=== PATIENT | male | born 1980 ===

== ENCOUNTER 2023-09-16 13:09 | Emergency (ER) | payer MEDICAID, SELFPAY ==
--- NOTE | ~2023-09-16 | CT_ITS ---
EXAMINATION: CT ABDOMEN AND PELVIS WITH CONTRAST CLINICAL INFORMATION: Right lower quadrant pain COMPARISON: None available. TECHNIQUE: Multidetector volumetric images were obtained from the superior aspect of the liver through the pubic symphysis following administration 85 mL of Omnipaque 350 intravenous contrast. Sagittal and coronal reformatted images were obtained on the technologist's workstation. Oral contrast: No This CT examination was performed using dose optimization techniques as appropriate, variously including the following: *Automated exposure control *Adjustment of mA and/or kV according to patient size (this includes techniques or standardized protocols for targeted exams where dose is matched to indication/reason for exam; i.e. extremities or head) *Use of iterative reconstruction technique DLP: 639 mGy-cm FINDINGS: LUNG BASES: The visualized lung bases are unremarkable. LIVER, GALLBLADDER, AND BILIARY TREE: Diffuse low attenuation of liver parenchyma due to fatty change. No focal liver lesion. No intrahepatic bile duct dilatation. The right lower liver measures 20 cm, borderline enlarged. The gallbladder is unremarkable with no evidence of radiopaque gallstones, gallbladder wall thickening, or obvious pericholecystic inflammatory changes. PANCREAS: Unremarkable. SPLEEN: Unremarkable. ADRENAL GLANDS: Unremarkable. BLADDER/KIDNEYS AND URETERS: Right kidney: Mild hydronephrosis right kidney with distention renal pelvis and a mild right-sided hydroureter. There is a stone at the right ureterovesical junction which is passing or has passed into the bladder base. This stone measures about 3 mm. Image 697/[id number] series 4. No other stone in either kidney or collecting system. Left kidney is normal. GASTROINTESTINAL TRACT: The small and large bowel are unremarkable. The appendix is unremarkable. ABDOMINAL WALL: No significant hernia is appreciated. LYMPH NODES: Normal. VASCULAR: Unremarkable. PELVIC VISCERA: Unremarkable. OSSEOUS STRUCTURES: Unremarkable. CT/CT abdomen pelvis w IV con IMPRESSION: Mild hydronephrosis of right kidney due to a 3 mm stone at the right ureterovesical junction. Fleischner guidelines were followed.
[2023-09-16 13:14] VITALS: BP 166/90; PULSE 65; RESP 19; TEMP 35.8; O2SAT 98; BMI 33.6
--- NOTE | 2023-09-16 13:14 | ED_ITS ---
HPI - General Adult General Chief complaint: Abdominal Pain Stated complaint: r sided abd pain nausea Time Seen by Provider: 09/16/23 13:33 Source: patient and asp developer Mode of arrival: ambulatory History of Present Illness HPI narrative: 43-year-old male who presents with onset of right lower quadrant pain that started this morning with associated subjective fever, chills, nausea, vomiting and states that although the pain has somewhat improved it is still present. He denies having this pain ever before in his life, denies any underlying medical problems. Related Data Previous Rx's Medication Instructions Recorded ketorolac 10 mg tablet 10 mg PO Q6H PRN pain 5 days #20 09/16/23 tabs ondansetron 4 mg disintegrating 4 mg PO Q8H PRN nausea and 09/16/23 tablet vomiting 4 days #10 tabs prednisone 20 mg tablet 20 mg PO DAILY #4 tabs 09/16/23 tamsulosin 0.4 mg capsule (Flomax) 0.4 mg PO BEDTIME 5 days #5 caps 09/16/23 Allergies Allergy/AdvReac Type Severity Reaction Status Date / Time No Known Allergies Allergy Verified 09/16/23 13:18 Review of Systems 2 Review of Systems: Pertinent positives and negatives as stated in HPI [facility] Past Medical History Source: nursing notes reviewed Onset Date is defined in the Problem List Problems that require an onset date and time if occurred within 24 hrs of arrival to the ED Aortic Dissection and Rupture; Neurologic impairment; Cardiopulmonary Arrest; Endotracheal Intubation; Insertion or Replacement of Mechanical Circulatory Assist Device Social History Social History Advance Directives: No Advance Directives Information Provided: Yes Physical Exam ED Vital Signs: Vital Signs - 24 hr 09/16/23 13:14 09/16/23 14:28 09/16/23 15:55 Temperature 96.4 F L 98.0 F 97.8 F Pulse Rate 65 74 74 Respiratory Rate 19 16 16 Blood Pressure 166/90 H 144/84 H 145/87 H Pulse Oximetry 98 94 98 Oxygen Delivery Method Room Air Room Air Room Air BMI result Body Mass Index 33.6 VITAL SIGNS: Reviewed. GENERAL: Well developed, well nourished, in no acute distress. HEAD: Normocephalic/atraumatic EYES: PERRLA, EOMI EARS: Ext canals without abnormality NOSE: Nares patent bilateral OROPHARYNX: no oral lesions noted, posterior pharynx clear NECK: Supple, no adenopathy LUNGS: Normal breath sounds. No adventitious sounds or accessory muscle use. SpO2<98> CARDIOVASCULAR: Regular rate and rhythm without noted murmurs ABDOMEN: Soft, right lower quadrant pain on deep palpation without rebound, non- distended with bowel sounds. MUSCULOSKELETAL: No tenderness, deformities, or effusions noted on gross inspection. EXTREMITIES: No cyanosis, clubbing or edema. SKIN: Inspection of the skin reveals no rashes NEUROLOGIC: Alert and oriented x 4. Strength and sensation to light touch were grossly intact x 4. Course Course Course Narrative: This is a rapid medical exam: Additional HPI, ROS, PE not included below will be deferred to primary provider. 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 Took 800mg ibuprofen. Patient recently came here from [place] 2 weeks ago. Rates pain at 9/10. No abdominal tenderness appreciated in triage, no CVAT. Denies dysuria. Plan: labs, UA Medications Administered Discontinued Medications Generic Name Dose Route Start Last Admin Trade Name Freq PRN Reason Stop Dose Admin Iohexol 100 ml 09/16/23 15:15 09/16/23 15:17 Iohexol 350 Mg/Ml 100 Ml Infus..Btl IV 09/16/23 15:16 85 ml ONCE ONE Administration Medical Decision Making Medical Decision Making MDM Narrative: 43-year-old male with history and clinical presentation, DDX: Early appendicitis, renal colic, constipation, musculoskeletal. Reviewed all investigations and hematologic indices are negative for leukocytosis or left shift, there is no anemia or thrombocytopenia. Coagulation studies are within normal limits. Chemistry indices are negative for NEPTALI or electrolyte/liver enzyme derangements. Urinalysis positive for blood suggesting increased likelihood for renal colic as opposed to early appendicitis. On review of CT scan there is no evidence of appendicitis but there is a 3 mm stone at the right UVJ with mild hydronephrosis. There is no leukocytosis or NEPTALI noted. Will provide patient with pain medication and discharged on urologic regimen as well as a referral with urology. Differential Diagnosis Differential Diagnoses: The differential diagnosis associated with the presentation includes Admission/Observation Consideration of admission/observation: Escalation of care including admission/observation considered pily above Lab Data MDM Lab Attestation statement: I reviewed the patient's lab results. Please see the discussion above 09/16/23 13:25 09/16/23 13:25 Labs: Lab Results 09/16/23 09/16/23 Range/Units 13:25 14:26 WBC 8.5 (4.8-10.8) X10*3/uL RBC 5.27 (4.60-5.80) X10*6/uL Hgb 15.0 (14.0-18.0) g/dl Hct 41.8 L (42.0-52.0) % MCV 79.3 L (80.0-98.0) fL MCH 28.5 (27.0-33.0) pg MCHC 35.9 (31.0-36.0) g/dl RDW 13.4 (11.0-16.0) % Plt Count 366 (160-400) X10*3/uL MPV 9.3 L (9.4-12.4) fL Immature Gran % (Auto) 1.1 H (0.0-0.4) % Neut % (Auto) 58.2 (45-73) % Lymph % (Auto) 32.2 (20-40) % [place] % (Auto) 6.3 (2-11) % Eos % (Auto) 1.5 (0-4) % Baso % (Auto) 0.7 (0-2) % Lymph # (Auto) 2.7 (1.2-4.9) X10*3/uL [place] # (Auto) 0.5 (0.1-1.2) X10*3/uL Eos # (Auto) 0.1 (0.0-0.4) X10*3/uL Baso # (Auto) 0.1 (0.0-0.2) X10*3/uL Abs Immat Gran (auto) 0.09 H (0.00-0.03) X10*3/uL Absolute Neuts (auto) 5.0 (2.0-8.3) x10*3/uL Absolute Nucleated RBC 0.000 (0.0-0.012) X10*3/uL Nucleated RBC % (auto) 0.0 (0.0-0.2) /100WBC PT 10.9 L (11.1-13.3) SEC INR 0.9 (0.9-1.1) Sodium 140 (135-145) mmol/L Potassium 4.4 (3.3-5.1) mmol/L Chloride 104 (96-108) mmol/L Carbon Dioxide 25 (22-29) mmol/L Anion Gap 15 (12-20) BUN 7 L (9-16) mg/dL Creatinine 0.87 (0.5-1.4) mg/dL Estim Creat Clear Calc 117.6 Estimated GFR > 60 Random Glucose 113 (60-115) mg/dL Calcium 9.4 (8.4-10.2) mg/dL Total Bilirubin 0.3 (0.0-1.0) mg/dL AST 36 (5-37) U/L ALT 49 H (0-40) U/L Alkaline Phosphatase 83 (39-117) U/L Total Protein 7.9 (6.5-8.0) g/dL Albumin 4.5 (3.5-5.0) g/dL Urine Color Yellow Urine Appearance Clear Urine pH 5.5 (5.0-9.0) Ur Specific [place] 1.020 (1.005-1.025) Urine Protein Negative (Neg-Trace) mg/dL Urine Glucose (UA) Negative (Negative) mg/dL Urine Ketones Negative (Negative) mg/dL Urine Blood Moderate (2+) H (Negative) Urine Nitrite Negative (Negative) Ur Leukocyte Esterase Negative (Negative) Urine RBC 3-5 H (0-2) /HPF Urine WBC 0-5 (0-5) /HPF Ur Squamous Epith Cells 0-2 (0-2) /HPF Urine Bacteria None Seen (None Seen) Hyaline Casts 0-2 (0-2) /LPF Radiology Impression Discussion of test interpretation with radiology: I have reviewed the radiologist's reading. Radiologist Impression: Please see the discussion above Discharge Plan Discharge Clinical Impression: Renal colic, Obstruction, uropathy, Hydronephrosis Patient Disposition: Home, Self-Care Instructions: Renal Colic (ED), Hydronephrosis (ED), Ureteral Stones (ED) Additional Instructions: 1. Recibo recetas para ayudar a controlar las n?useas, el dolor y el paso del c?lculo renal que se identific? en melissa examen de hoy. 2. Tambi?n lo derivar?n a Urolog?a, quien lo evaluar? y deber? llamar al consultorio el lunes por la ma?celestino. 3. Establezca atenci?n con un proveedor de atenci?n primaria lo antes posible. Regrese a la nichole de emergencias si los s?ntomas empeoran. 1. You I receiving prescriptions to help manage your nausea, pain as well as the passage of the kidney stone that has been identified on your workup today. 2. You are also being referred to Urology who will evaluate you and you should call the office on Monday. 3. Please establish care with a primary care provider at your earliest convenience. Return to the ER for any worsening of symptoms. Prescriptions: New ondansetron 4 mg tablet,disintegrating 4 mg PO Q8H PRN (Reason: nausea and vomiting) 4 Days Qty: 10 0RF tamsulosin [Flomax] 0.4 mg capsule 0.4 mg PO BEDTIME 5 Days Qty: 5 0RF ketorolac 10 mg tablet 10 mg PO Q6H PRN (Reason: pain) 5 Days Qty: 20 0RF Rx Instructions: Patient received Toradol in the emergency room. prednisone 20 mg tablet 20 mg PO DAILY Qty: 4 0RF Referrals: Herman Busch MD [Physician] - Print Language: Greenlandic
[2023-09-16 13:32] LABS: MANUAL DIFF FLAG NO
[2023-09-16 13:35] LABS: Basophils Absolute Auto 0.1 X10*3/uL (0.0-0.2); Basophils Percent Auto 0.7 % (0-2); Eosinophils Absolute Auto 0.1 X10*3/uL (0.0-0.4); Eosinophils Percent Auto 1.5 % (0-4); Hematocrit 41.8 % (42.0-52.0); Imm Gran Abs Auto 0.09 X10*3/uL (0.00-0.03); Imm Gran Pct Auto 1.1 % (0.0-0.4); Lymphocytes Absolute Auto 2.7 X10*3/uL (1.2-4.9); Lymphocytes Percent Auto 32.2 % (20-40); Mean Corpuscular HGB Conc 35.9 g/dl (31.0-36.0); Mean Corpuscular Hemoglobin 28.5 pg (27.0-33.0); Mean Corpuscular Volume 79.3 fL (80.0-98.0); Mean Platelet Volume 9.3 fL (9.4-12.4); Monocytes Absolute Auto 0.5 X10*3/uL (0.1-1.2); Monocytes Percent Auto 6.3 % (2-11); Neutrophils Percent Auto 58.2 % (45-73); Platelet Count 366 X10*3/uL (160-400); Red Blood Count 5.27 X10*6/uL (4.60-5.80); Red Cell Distribution Width 13.4 % (11.0-16.0); White Blood Count 8.5 X10*3/uL (4.8-10.8)
[2023-09-16 13:38] LABS: INTERNATIONAL NORM RATIO 0.9 (0.9-1.1); Prothrombin Time 10.9 SEC (11.1-13.3)
[2023-09-16 14:18] LABS: Alanine Aminotransferase 49 U/L (0-40); Albumin Level 4.5 g/dL (3.5-5.0); Alkaline Phosphatase 83 U/L (39-117); Anion Gap 15 (12-20); Aspartate Amino Transferase 36 U/L (5-37); Bilirubin Total 0.3 mg/dL (0.0-1.0); Blood Urea Nitrogen 7 mg/dL (9-16); Calcium 9.4 mg/dL (8.4-10.2); Carbon Dioxide 25 mmol/L (22-29); Chloride 104 mmol/L (96-108); Creatinine Clr Calc Pharmacy 117.6; Estimated Glomerular Filt Rate > 60; Glucose Random 113 mg/dL (60-115); Potassium 4.4 mmol/L (3.3-5.1); Sodium 140 mmol/L (135-145); Total Protein 7.9 g/dL (6.5-8.0)
[2023-09-16 14:28] VITALS: BP 144/84; PULSE 74; RESP 16; TEMP 36.7; O2SAT 94
[2023-09-16 14:38] LABS: Appearance Urine Clear; Color Urine Yellow; Glucose Urine UA Negative (Negative); Leukocyte Esterase Urine Negative (Negative); Nitrite Urine Negative (Negative); PH 5.5 (5.0-9.0); UMIC TRIGGER UACC YES; Urine Blood Moderate (2+) (Negative); Urine Ketones Negative (Negative); Urine Protein Negative (Neg-Trace)
[2023-09-16 14:46] LABS: Bacteria Urine None Seen (None Seen); Hyaline Casts Urine 0-2 /LPF (0-2); Squamous Epithelial Cell Urine 0-2 /HPF (0-2); WBC Urine 0-5 /HPF (0-5)
[2023-09-16] MEDS: iohexoL 350 MG/ML 100 ML INFUS..BTL IV (15:17)
[2023-09-16 15:55] VITALS: BP 145/87; PULSE 74; RESP 16; TEMP 36.6; O2SAT 98
== END 2023-09-16 17:25 | disposition home or self-care (01) ==
PROVIDERS: Registered Nurse Emergency; Emergency Provider Student in an Organized Health Care Education/Training Program
DX: N13.2 Hydronephrosis with renal and ureteral calculous obstruction (principal)
CPT/HCPCS: 36415; 74177; 80053; 81001; 85025; 85610; 99284; Q9967